=== PATIENT | male | born 1970 | race Caucasian/White ===

== ENCOUNTER → 2020-12-30 | Outpatient (CLI) | payer BC ==
[2020-12-30 14:16] LABS: HCT 48.6 % (39.6-50.0); MCH 30.5 pg (27.0-32.0); MCV 87.1 fL (80.0-97.0); Mean Platelet Volume 9.1 fL (9.5-12.2); Platelet Count 314 X 10*3/uL (140-440); RBC 5.58 X 10*6/uL (4.40-5.60); WBC 6.93 X 10*3/uL (4.50-10.00)
[2020-12-31 10:16] LABS: African American GFR (CKD) 101.3 (60.0-200.0); Albumin 4.3 g/dL (3.80-4.90); Albumin/Globulin Ratio 1.59 (1.60-3.17); Anion Gap 16.8 mmol/L (4.00-12.00); Calcium 9.6 mg/dL (8.7-10.3); Carbon Dioxide 21.2 mmol/L (21.6-31.8); Chol/HDL Ratio 4.2; Globulin 2.7 g/dL (1.6-3.3); LDL Cholesterol,Calculated 98.8 mg/dL (0.0-131.0); Non-African American GFR(CKD) 87.4 (60.0-200.0); Potassium 4.4 mmol/L (3.5-5.5); Prostate Specific Antigen 0.5 ng/mL (0.0-3.5); Total Bilirubin 1.4 mg/dL (0.2-1.2); VLDL Calculation 32.2 mg/dL (5.00-40.00)
== END | disposition home or self-care (01) ==
LOC: LABWHC1 08:28
PROVIDERS: ATTEND Family Medicine
DX: I10 Essential (primary) hypertension (principal); I25.10 Atherosclerotic heart disease of native coronary artery without angina pectoris
CPT/HCPCS: 36415; 80053; 80061; 84153; 85027